=== PATIENT | male | born 1960 | race Caucasian/White ===

== ENCOUNTER 2018-10-19 01:56 | Emergency (ER) | payer OTHER ==
[~2018-10-19] VITALS: Ht 180.3 cm; Wt 90.7 kg
[~2018-10-19 01:56] MED LIST: ASPIRIN EC325 MG PO; HYDROCODONE-AP1 EAC6 PO; KEPPRA 500 MG500 M1 PO; LISINOPRIL20 MG PO; LORAZEPAM 1 MG T1 M1 PO; TOPROL XL50 MG PO; TRAMADOL 50 MG50 MG PO; TRINATE TABLET1 TAB PO; TYLENOL325 MG PO
[2018-10-19 03:14] LABS: ABSOLUTE NEUTROPHILS 3.6 thou/uL (1.4-8.2); BASOPHILS 1.5 % (0.0-2.0); EOSINOPHILS 0.7 % (0.0-3.0); HEMATOCRIT 39.9 % (42.0-52.0); HEMOGLOBIN 13.4 gm/dL (14.0-18.0); LYMPHOCYTES 31.1 % (24.0-44.0); MCH 31.7 pg (26.0-34.0); MCHC 33.6 g/dL (28.0-37.0); MCV 94.4 fL (80.0-100.0); MONOCYTES 6.3 % (1.0-8.0); PLATELET COUNT 438 thou/uL (150-400); POLYS 60.4 % (36.0-66.0); RBC 4.22 mil/uL (4.50-6.00); RDW 15.2 % (10.5-14.5); WBC 5.9 thou/uL (4.0-11.0)
[2018-10-19 03:21] LABS: CALCIUM 8.5 mg/dL (8.5-10.1); CREATININE 0.7 mg/dL (0.7-1.3); POTASSIUM 4.2 mmol/L (3.5-5.1)
[2018-10-19 03:27] LABS: ALBUMIN 3.8 g/dL (3.4-5.0); TOTAL BILIRUBIN 0.3 mg/dL (<0.1-1.0); TOTAL PROTEIN 7.2 g/dL (6.4-8.2)
[2018-10-19 06:04] VITALS: BP 143/81
--- NOTE | 2018-10-19 14:19 | EKG ---
[facility] [address] [place] [address] ELECTROCARDIOGRAM REPORT Name: HANS FUNES Room #: DEP Renaldo#: [id number] ������������������ Admission: 10/19/18 ������������������ Attend Phys: Discharge: 10/19/18 ������������������ Date of : 58 Report #: [id number] ����������������������������������������������������������������� [id number] THIS REPORT FOR: //name// [facility] ED Test Date: 2018-10-19 Test Time: 03:23:13 Pat Name: HANS FUNES Department: Room: Gender: Surgical Services Manager: jamie : 1960 Requested By: Soni Knox Order Number: [id number] MD: Raphael Al Measurements Intervals [place] Rate: 69 P: 30 [place]: 171 QRS: -17 QRSD: 170 T: 120 QT: 495 QTc: 531 Interpretive Statements Sinus rhythm Left bundle branch block Compared to ECG 10/11/2014 03:46:07 Sinus tachycardia no longer present Left bundle branch block is now present Electronically Signed On 10-19-2018 14:19:12 CDT by Raphael Al [email or web address] ��������������������������������������������� <ELECTRONICALLY SIGNED> ���������������������������������������� By: Raphael Al MD, [facility] ��������������������������������������������� 10/19/18 1419 0323 0323 Raphael Al MD, [facility] /EPI
== END 2018-10-19 06:06 | disposition home or self-care (01) ==
LOC: ER 01:56
PROVIDERS: Student in an Organized Health Care Education/Training Program
DX: F10.129 Alcohol abuse with intoxication, unspecified (principal); I48.91 Unspecified atrial fibrillation; I10 Essential (primary) hypertension; F32.9 Major depressive disorder, single episode, unspecified; F41.9 Anxiety disorder, unspecified; Y90.0 Blood alcohol level of less than 20 mg/100 ml

== ENCOUNTER 2018-10-24 09:38 | Emergency (ER) | payer OTHER ==
[~2018-10-24] VITALS: Ht 180.3 cm; Wt 127.0 kg
[2018-10-24 12:08] LABS: ABSOLUTE NEUTROPHILS 5.8 thou/uL (1.4-8.2); BASOPHILS 0.8 % (0.0-2.0); HEMATOCRIT 44.2 % (42.0-52.0); HEMOGLOBIN 14.7 gm/dL (14.0-18.0); MCH 31.5 pg (26.0-34.0); MCHC 33.2 g/dL (28.0-37.0); MCV 94.9 fL (80.0-100.0); MONOCYTES 5.2 % (1.0-8.0); PLATELET COUNT 216 thou/uL (150-400); RBC 4.66 mil/uL (4.50-6.00); RDW 15.9 % (10.5-14.5); WBC 7.1 thou/uL (4.0-11.0)
[2018-10-24 12:12] LABS: CALCIUM 9.5 mg/dL (8.5-10.1); CREATININE 0.7 mg/dL (0.7-1.3); POTASSIUM 4.3 mmol/L (3.5-5.1)
[2018-10-24 12:22] LABS: ALBUMIN 4.4 g/dL (3.4-5.0); TOTAL BILIRUBIN 1.1 mg/dL (<0.1-1.0); TOTAL PROTEIN 7.9 g/dL (6.4-8.2); TROPONIN-I 0.1 ng/mL (<0.06)
[2018-10-24 14:10] VITALS: BP 166/93
--- NOTE | 2018-10-24 18:05 | EKG ---
[place] [address] [facility] [place] [address] ELECTROCARDIOGRAM REPORT Name: HANS FUNES Room #: DEP NICOLE Macario#: [id number] ������������������ Admission: 10/24/18 ������������������ Attend Phys: Discharge: 10/24/18 ������������������ Date of : 58 Report #: [id number] ����������������������������������������������������������������� [id number] THIS REPORT FOR: //name// [facility] ED Test Date: 2018-10-24 Test Time: 10:44:54 Pat Name: HANS FUNES Department: Room: Gender: Associate Product Manager: CYRUS : 1960 Requested By: Liliana Washington Order Number: [id number] MD: Rowdy Mendez Measurements Intervals [place] Rate: 109 P: 52 DC: 137 QRS: -9 QRSD: 159 T: 136 QT: 393 QTc: 530 Interpretive Statements Sinus tachycardia Left bundle branch block Compared to ECG 10/19/2018 03:23:13 Sinus rhythm no longer present Electronically Signed On 10-24-2018 18:05:19 CDT by Rowdy Mendez [email or web address] ��������������������������������������������� <ELECTRONICALLY SIGNED> ���������������������������������������� By: Rowdy Mendez MD ��������������������������������������������� 10/24/18 1805 1044 1044 Rowdy Mendez MD /JOHNIE
--- NOTE | 2018-10-24 18:06 | EKG ---
[address] [place] [address] ELECTROCARDIOGRAM REPORT Name: HANS FUNES Room #: DEP NICOLE Macario#: [id number] ������������������ Admission: 10/24/18 ������������������ Attend Phys: Discharge: 10/24/18 ������������������ Date of : 58 Report #: [id number] ����������������������������������������������������������������� [id number] THIS REPORT FOR: //name// [facility] ED Test Date: 2018-10-24 Test Time: 11:44:57 Pat Name: HANS FUNES Department: Room: Gender: Research Technologist: CYRUS : 1960 Requested By: Liliana Washington Order Number: [id number] MD: Rowdy Mendez Measurements Intervals [place] Rate: 110 P: 47 [place]: 130 QRS: -17 QRSD: 160 T: 130 QT: 386 QTc: 523 Interpretive Statements Sinus tachycardia Left bundle branch block Compared to ECG 10/19/2018 03:23:13 Sinus rhythm no longer present Electronically Signed On 10-24-2018 18:05:57 CDT by Rowdy Mendez [email or web address] ��������������������������������������������� <ELECTRONICALLY SIGNED> ���������������������������������������� By: Rowdy Mendez MD ��������������������������������������������� 10/24/18 1805 1144 1144 Rowdy Mendez MD /JOHNIE
== END 2018-10-24 14:10 | disposition left against medical advice (07) ==
LOC: ER 09:38
PROVIDERS: Physician Assistant
DX: F10.10 Alcohol abuse, uncomplicated (principal); R07.89 Other chest pain; R41.82 Altered mental status, unspecified; R79.89 Other specified abnormal findings of blood chemistry; I48.91 Unspecified atrial fibrillation; I10 Essential (primary) hypertension; F32.9 Major depressive disorder, single episode, unspecified; F41.9 Anxiety disorder, unspecified; Y90.0 Blood alcohol level of less than 20 mg/100 ml

== ENCOUNTER 2019-10-28 19:15 | Emergency (ER) | payer OTHER ==
[~2019-10-28] VITALS: Ht 180.3 cm; Wt 86.2 kg
[2019-10-28 19:55] LABS: ABSOLUTE NEUTROPHILS 4.8 thou/uL (1.4-8.2); BASOPHILS 0.9 % (0.0-2.0); EOSINOPHILS 1.3 % (0.0-3.0); HEMATOCRIT 31.6 % (42.0-52.0); HEMOGLOBIN 10.4 gm/dL (14.0-18.0); LYMPHOCYTES 20.9 % (24.0-44.0); MCH 27.6 pg (26.0-34.0); MCV 83.5 fL (80.0-100.0); PLATELET COUNT 239 thou/uL (150-400); POLYS 65.9 % (36.0-66.0); RBC 3.78 mil/uL (4.50-6.00); RDW 18.8 % (10.5-14.5); WBC 7.3 thou/uL (4.0-11.0)
[2019-10-28 20:21] LABS: ANION GAP 10 mmol/L (7-16); BUN 12 mg/dL (7-18); CALCIUM 8.4 mg/dL (8.5-10.1); CHLORIDE 104 mmol/L (98-107); CO2 24 mmol/L (21-32); CREATININE 1.1 mg/dL (0.7-1.3); GLUCOSE 100 mg/dL (74-106); POTASSIUM 3.8 mmol/L (3.5-5.1); SODIUM 138 mmol/L (136-145)
[2019-10-28 20:29] LABS: ALBUMIN 4.1 g/dL (3.4-5.0); MAGNESIUM 1.6 mg/dL (1.8-2.4); PHOSPHORUS 3.5 mg/dL (2.5-4.9); SALICYLATE < 2.8 mg/dL (2.8-20.0); SGOT 18 U/L (15-37); SGPT 21 U/L (30-65); TOTAL BILIRUBIN 0.2 mg/dL (<0.1-1.0); TOTAL PROTEIN 7.5 g/dL (6.4-8.2)
[2019-10-28 20:30] LABS: URINE BILIRUBIN NEGATIVE (Negative); URINE BLOOD NEGATIVE (Negative); URINE CLARITY CLEAR; URINE COLOR YELLOW; URINE GLUCOSE-RANDOM* NEGATIVE (Negative); URINE KETONES NEGATIVE (Negative); URINE LEUKOCYTES-REFLEX NEGATIVE (Negative); URINE NITRITE-REFLEX NEGATIVE (Negative); URINE PROTEIN (DIPSTICK) NEGATIVE (Negative); URINE SPECIFIC GRAVITY <= 1.005 (1.005-1.035); URINE UROBILINOGEN 0.2 E.U./dl (0.2-1.0)
[2019-10-28 20:39] LABS: AMP/METHAMP Negative (Negative); BARBITURATES Negative (Negative); BENZODIAZEPINES POSITIVE (Negative); COCAINE Negative (Negative); METHADONE Negative (Negative); OPIATES Negative (Negative); PCP Negative (Negative)
[2019-10-28] MEDS ORDERED: MAG-OXIDE400 MG PO (20:51)
[2019-10-28 21:57] VITALS: BP 123/82
== END 2019-10-28 22:05 | disposition home or self-care (01) ==
LOC: ER 19:15
PROVIDERS: Emergency Medicine
DX: G40.909 Epilepsy, unspecified, not intractable, without status epilepticus (principal); I48.91 Unspecified atrial fibrillation; I10 Essential (primary) hypertension; E83.42 Hypomagnesemia; K21.9 Gastro-esophageal reflux disease without esophagitis; I25.10 Atherosclerotic heart disease of native coronary artery without angina pectoris; Z79.899 Other long term (current) drug therapy; Z79.82 Long term (current) use of aspirin; Z95.0 Presence of cardiac pacemaker